=== PATIENT | female | born 1960 | race Caucasian/White ===

== ENCOUNTER 2017-06-25 21:07 | Emergency (ER) | payer MEDICARE ==
[2017-06-25 21:33] LABS: Bilirubin Negative (Negative); Blood, Urine Trace (Negative); Clarity Clear (Clear); Glucose, Urine (Dipstick) Negative (Negative); Leukocyte Negative (Negative); Nitrite Negative (Negative); Protein, Urine (Dipstick) Negative (Neg-Trace); Specific Gravity, Urine 1.025 (1.005-1.030)
[2017-06-25 21:36] LABS: Bacteria/HPF Rare-Few HPF (None Seen); RBC/HPF 0-3 HPF (0-3); Squamous Epithelial 0-3 HPF (0-3); WBC/HPF 0-3 HPF (0-3)
[2017-06-25 21:52] LABS: #Basophils 0.2 thou/uL (0.0-0.2); #Eosinphils 0.3 thou/uL (0.0-0.7); #Lymphocytes 3.1 thou/uL (1.20-3.40); #Monocytes 0.7 thou/uL (0.11-0.59); #Neutrophils 5.6 thou/uL (1.40-6.50); %Basophils 1.8 % (0.0-1.0); %Eosinophils 2.7 % (0.0-10.0); %Lymphocytes 30.9 % (21.0-51.0); %Monocytes 7.4 % (0.0-10.0); %Neutrophils 57.2 % (42.0-75.0); Hemoglobin 12.5 g/dL (12.0-16.0); Mean Corpuscular HGB CONC 32.9 g/dL (32.0-36.0); Mean Corpuscular Hemoglobin 29.8 pg (27.0-31.0); Mean Corpuscular Volume 90.5 fl (81.0-99.0); Mean Platelet Volume 8.4 fL (7.4-10.4); Platelet Count 297 thou/uL (130-400); RBC Distribution Width 13.1 % (11.5-14.5); Red Blood Cell (RBC) Count 4.19 mill/uL (4.20-5.40); White Blood Cell (WBC) Count 9.9 thou/uL (4.8-10.8)
[2017-06-25] MEDS ORDERED: Ketorolac Tromethamine 30 MG/ML VIAL ONE (22:01)
[2017-06-25 22:09] LABS: ALT (SGPT) 28 U/L (8-55); AST (SGOT) 24 U/L (5-34); Albumin 3.6 g/dL (3.5-5.0); Alkaline Phosphatase 110 U/L (40-150); Anion Gap 12 mmol/L (10-20); BUN (Urea Nitrogen) 10 mg/dL (9.8-20.1); Bilirubin, Total 0.2 mg/dL (0.2-1.2); Calc. Creatinine Clearance 0 mL/min (70-130); Calcium 9.2 mg/dL (7.8-10.44); Carbon Dioxide 27 mmol/L (22-29); Chloride 105 mmol/L (98-107); Estimated GFR-MDRD 48; Globulin 3.9 g/dL (2.4-3.5); Glucose 93 mg/dL (70-105); Potassium 4.3 mmol/L (3.5-5.1); Protein, Total 7.5 g/dL (6.0-8.3); Sodium 140 mmol/L (136-145)
--- NOTE | 2017-06-26 07:11 | CT ---
PRELIMINARY REPORT/[facility]/EMERGENCY AFTER HOURS PROCEDURE: EXAM: CT Abdomen and Pelvis Without Intravenous Contrast EXAM DATE/TIME: Exam ordered 06/25/2017 10:17 PM CLINICAL HISTORY: 56 years old, female; Pain; Abdominal pain; Acute; Patient HX: Left sided pain x 1 day TECHNIQUE: Axial computed tomography images of the abdomen and pelvis without intravenous contrast. COMPARISON: No relevant prior studies available. FINDINGS: Lower thorax: No acute findings. ABDOMEN: Liver: Unremarkable. Gallbladder and bile ducts: Prior cholecystectomy. No ductal dilation. Pancreas: Unremarkable. No ductal dilation. Spleen: Unremarkable. No splenomegaly. Adrenals: Bilateral adrenal adenomas. Kidneys and ureters: Unremarkable. No obstructing stones. No hydronephrosis. Stomach and bowel: Postsurgical change of the stomach. No obstruction. No mucosal thickening. Appendix: Normal appendix. PELVIS: Bladder: Unremarkable. No stones. Reproductive: Unremarkable as visualized. ABDOMEN and PELVIS: Intraperitoneal space: Extensive multifocal infiltration of the omentum which should be considered o mental metastatic disease until proven otherwise. Nonspecific fat necrosis less likely but not exclu ded. No free air. No significant fluid collection. Bones/joints: No acute fracture. No dislocation. Soft tissues: Unremarkable. Vasculature: Unremarkable. No abdominal aortic aneurysm. Lymph nodes: Unremarkable. No enlarged lymph nodes. IMPRESSION: Extensive multifocal infiltration of the omentum which should be considered omental metastatic disea se until proven otherwise. Nonspecific fat necrosis less likely but not excluded. Thank you for allowing us to participate in the care of your patient. Dictated and Authenticated by: Kenneth Haque MD 06/25/2017 10:58 PM Central Time ([place]) FINAL REPORT CT ABDOMEN AND PELVIS WITHOUT CONTRAST: Date: 06/25/[address] of the abdomen and pelvis was done without oral or IV contrast for evaluation of left lowe r quadrant pain. Axial slices were acquired, then coronal and sagittal reconstructions were done. FINDINGS: There are spotty areas of increased density in the patient's omentum anteriorly, presumably mostly t he greater omentum. Areas of increased density are spread throughout it. There has been prior stomac h surgery, as well as a prior cholecystectomy. Differential considerations would include omental inf arction or fat necrosis, though metastatic disease would have to be a consideration as well. The fin dings appear to be restricted to the omentum, as I do not see any changes elsewhere. The lung bases are clear. The liver, spleen, pancreas, kidneys, and abdominal aorta show no acute fi ndings within the limitations of a noncontrast study. Bilateral adrenal masses are present consisten t with adenomas. The right is long and thin and measures 3.6 cm in length and the left measures 3.6 cm but is wider. Each has CT numbers in the slightly negative range, making adenomas highly probable . The bowel itself shows no distention. There is no inflammatory change around bowel. There was no sig n of diverticulitis, free air, or free fluid. CT of the pelvis showed no pelvic masses, free fluid, or inflammatory changes. A degenerated disc is present at L5-S1. There may be even a tiny left paracentral disc protrusion. IMPRESSION: Spotty areas of increased density in the omentum, anterior part of the abdomen. Omental infarction o r fat necrosis is a prime consideration. Metastatic disease to omentum must be in the differential a s well. Findings in agreement with preliminary reading by Luc. POS: HOME
== END 2017-06-25 23:37 | disposition home or self-care (01) ==
LOC: BURERS 21:07
DX: R10.32 Left lower quadrant pain (principal); G89.29 Other chronic pain; M54.9 Dorsalgia, unspecified; K21.9 Gastro-esophageal reflux disease without esophagitis; F41.9 Anxiety disorder, unspecified; F32.9 Major depressive disorder, single episode, unspecified; F17.210 Nicotine dependence, cigarettes, uncomplicated; Z79.899 Other long term (current) drug therapy
CPT/HCPCS: 74176; 80053; 81003; 81015; 85025; 96374; J1885

== ENCOUNTER 2017-08-05 08:03 | Emergency (ER) | payer MEDICARE ==
[2017-08-05] MEDS ORDERED: Ketorolac Tromethamine 30 MG/ML VIAL ONE (08:28)
[2017-08-05] MEDS ORDERED: Pantoprazole 40 MG VIAL ONE (08:28)
[2017-08-05] MEDS ORDERED: Ondansetron HCl/PF 4 MG/2 ML Vial ONE (08:28)
[2017-08-05 08:36] LABS: #Basophils 0.1 thou/uL (0.0-0.2); #Eosinphils 0.2 thou/uL (0.0-0.7); #Lymphocytes 2.3 thou/uL (1.20-3.40); #Monocytes 0.7 thou/uL (0.11-0.59); #Neutrophils 6.9 thou/uL (1.40-6.50); %Basophils 1.3 % (0.0-1.0); %Eosinophils 2.1 % (0.0-10.0); %Lymphocytes 22.5 % (21.0-51.0); %Monocytes 6.9 % (0.0-10.0); %Neutrophils 67.1 % (42.0-75.0); Hemoglobin 13.4 g/dL (12.0-16.0); Mean Corpuscular HGB CONC 33.3 g/dL (32.0-36.0); Mean Corpuscular Hemoglobin 29.9 pg (27.0-31.0); Mean Corpuscular Volume 89.9 fl (81.0-99.0); Platelet Count 283 thou/uL (130-400); RBC Distribution Width 13.4 % (11.5-14.5); Red Blood Cell (RBC) Count 4.47 mill/uL (4.20-5.40); White Blood Cell (WBC) Count 10.3 thou/uL (4.8-10.8)
[2017-08-05 08:36] LABS: Bilirubin Negative (Negative); Blood, Urine Negative (Negative); Clarity Slightly Cloudy (Clear); Glucose, Urine (Dipstick) Negative (Negative); Leukocyte Negative (Negative); Nitrite Negative (Negative); Protein, Urine (Dipstick) Negative (Neg-Trace); Urobilinogen 0.2 mg/dL (0.2-1.0); pH, Urine 5.5 (5.0-9.0)
[2017-08-05 08:50] LABS: ALT (SGPT) 25 U/L (8-55); AST (SGOT) 20 U/L (5-34); Albumin 3.6 g/dL (3.5-5.0); Alkaline Phosphatase 113 U/L (40-150); Anion Gap 14 mmol/L (10-20); BUN (Urea Nitrogen) 11 mg/dL (9.8-20.1); Bilirubin, Total 0.6 mg/dL (0.2-1.2); Calc. Creatinine Clearance 0 mL/min (70-130); Calcium 9.4 mg/dL (7.8-10.44); Carbon Dioxide 24 mmol/L (22-29); Chloride 104 mmol/L (98-107); Estimated GFR-MDRD 76; Globulin 4.3 g/dL (2.4-3.5); Glucose 116 mg/dL (70-105); Lipase 34 U/L (8-78); Protein, Total 7.9 g/dL (6.0-8.3); Sodium 138 mmol/L (136-145)
[2017-08-05] MEDS ORDERED: Iopamidol 370 76% 100 ML VIAL ONE (09:00)
--- NOTE | 2017-08-05 11:22 | CT ---
CT ABDOMEN AND PELVIS WITH IV CONTRAST: 08/05/2017 HISTORY: Left-sided abdominal pain for one day. Left lower quadrant abdominal pain. COMPARISON: 06/25/2017 FINDINGS: Again noted are post surgical changes of the stomach, which may be related to a gastric sleeve proce dure. Post cholecystectomy changes are again noted. A calcified granuloma is seen at the left lung base with calcified granulomata again present in the liver. There is stranding within the anterior abdominal wall fat. This extends over a greater distribution than expected for fat necrosis, and there are no associated calcifications or other findings to sug gest this represents an area of fat necrosis. This is also in a larger distribution than expected f or areas of omental infarction; given the more extensive distribution throughout the anterior abdome n, peritoneal carcinomatosis should be considered. Again noted are bilateral adrenal masses, which were shown to represent adrenal adenomas by attenuat ion coefficient on prior noncontrasted CT exam. These are stable in size and appearance. There is mild diminished attenuation of the liver, relative to the spleen. Although this is nonspec ific on a post contrasted study, this may be related to mild fatty infiltration. The pancreas, bilateral kidneys, abdominal aorta, and urinary bladder demonstrate a normal CT appear ance. The uterus and adnexal structures demonstrate a grossly normal appearance for the patient's a ge. The appendix is visualized and normal in caliber. No free fluid, fluid collection, or lymphadenopathy is seen in the abdomen or pelvis. There have be en no interval changes compared to the prior noncontrasted CT scan examination. IMPRESSION: 1. Persistent stranding and areas of slight nodularity involving the anterior and right anterolater al abdomen, which is not significantly changed compared to the prior exam. Omental carcinomatosis i s again the diagnosis of exclusion; although other etiologies, as described above, cannot be entirel y excluded. 2. Bilateral adrenal adenomas. 3. Post surgical changes of the stomach with evidence of prior cholecystectomy. 4. No CT evidence of appendicitis. 5. No acute findings are seen in the abdomen or pelvis. POS: [facility]
== END 2017-08-05 10:17 | disposition home or self-care (01) ==
LOC: BURERS 08:03
DX: R10.11 Right upper quadrant pain (principal); K21.9 Gastro-esophageal reflux disease without esophagitis; F41.9 Anxiety disorder, unspecified; F32.9 Major depressive disorder, single episode, unspecified; F17.210 Nicotine dependence, cigarettes, uncomplicated; Z79.899 Other long term (current) drug therapy
CPT/HCPCS: 74177; 80053; 81003; 83690; 85025; 96374; 96375; C9113; J1885; J2405

== ENCOUNTER 2017-08-14 08:36 | Emergency (ER) | payer MEDICARE ==
[2017-08-14 08:58] LABS: Bilirubin Negative (Negative); Blood, Urine Negative (Negative); Clarity Clear (Clear); Glucose, Urine (Dipstick) Negative (Negative); Leukocyte Negative (Negative); Nitrite Negative (Negative); Protein, Urine (Dipstick) Negative (Neg-Trace); Specific Gravity, Urine 1.015 (1.005-1.030); Urobilinogen 0.2 mg/dL (0.2-1.0); pH, Urine 5.5 (5.0-9.0)
[2017-08-14] MEDS ORDERED: Ketorolac Tromethamine 30 MG/ML VIAL ONE (09:12)
[2017-08-14 09:35] LABS: #Basophils 0.1 thou/uL (0.0-0.2); #Eosinphils 0.2 thou/uL (0.0-0.7); #Lymphocytes 2.1 thou/uL (1.20-3.40); #Monocytes 0.6 thou/uL (0.11-0.59); #Neutrophils 3.5 thou/uL (1.40-6.50); %Basophils 1.4 % (0.0-1.0); %Eosinophils 3.5 % (0.0-10.0); %Lymphocytes 32.1 % (21.0-51.0); %Monocytes 8.6 % (0.0-10.0); %Neutrophils 54.4 % (42.0-75.0); Hemoglobin 12.8 g/dL (12.0-16.0); Mean Corpuscular HGB CONC 32.1 g/dL (32.0-36.0); Mean Corpuscular Hemoglobin 28.9 pg (27.0-31.0); Mean Corpuscular Volume 89.9 fl (81.0-99.0); Mean Platelet Volume 7.5 fL (7.4-10.4); Platelet Count 240 thou/uL (130-400); RBC Distribution Width 13.6 % (11.5-14.5); Red Blood Cell (RBC) Count 4.44 mill/uL (4.20-5.40); White Blood Cell (WBC) Count 6.5 thou/uL (4.8-10.8)
[2017-08-14 09:45] LABS: ALT (SGPT) 32 U/L (8-55); AST (SGOT) 20 U/L (5-34); Albumin 3.4 g/dL (3.5-5.0); Alkaline Phosphatase 122 U/L (40-150); Anion Gap 13 mmol/L (10-20); BUN (Urea Nitrogen) 12 mg/dL (9.8-20.1); Bilirubin, Total 0.4 mg/dL (0.2-1.2); Calc. Creatinine Clearance 0 mL/min (70-130); Calcium 9.2 mg/dL (7.8-10.44); Carbon Dioxide 24 mmol/L (22-29); Chloride 107 mmol/L (98-107); Estimated GFR-MDRD 77; Glucose 107 mg/dL (70-105); Lipase 35 U/L (8-78); Potassium 4.1 mmol/L (3.5-5.1); Protein, Total 7.4 g/dL (6.0-8.3); Sodium 140 mmol/L (136-145)
[2017-08-14] MEDS ORDERED: Fentanyl 100 MCG/2 ML VIAL ONE (09:58)
== END 2017-08-14 10:29 | disposition home or self-care (01) ==
LOC: BURERS 08:36
DX: R10.11 Right upper quadrant pain (principal); G89.29 Other chronic pain; F41.9 Anxiety disorder, unspecified; F32.9 Major depressive disorder, single episode, unspecified; F17.210 Nicotine dependence, cigarettes, uncomplicated; Z79.899 Other long term (current) drug therapy
CPT/HCPCS: 80053; 81003; 83605; 83690; 85025; 94760; 96374; 96375; J1885; J3010

== ENCOUNTER 2017-08-23 21:45 | Emergency (ER) | payer MEDICARE ==
[2017-08-23] MEDS ORDERED: Promethazine HCl 25 MG/ML VIAL ONE (22:16)
[2017-08-23] MEDS ORDERED: methylPREDNISolone Sod Succ/PF 125 MG/2 ML VIAL ONE (22:16)
[2017-08-23 22:22] LABS: Bilirubin Negative (Negative); Blood, Urine Negative (Negative); Glucose, Urine (Dipstick) Negative (Negative); Leukocyte Negative (Negative); Nitrite Negative (Negative); Protein, Urine (Dipstick) Negative (Neg-Trace); Specific Gravity, Urine 1.025 (1.005-1.030); Urobilinogen 0.2 mg/dL (0.2-1.0); pH, Urine 5.5 (5.0-9.0)
[2017-08-23 22:23] LABS: Clarity Hazy (Clear)
[2017-08-23 23:06] LABS: #Basophils 0.2 thou/uL (0.0-0.2); #Eosinphils 0.3 thou/uL (0.0-0.7); #Lymphocytes 2.8 thou/uL (1.20-3.40); #Monocytes 0.8 thou/uL (0.11-0.59); #Neutrophils 8.1 thou/uL (1.40-6.50); %Basophils 1.9 % (0.0-1.0); %Eosinophils 2.4 % (0.0-10.0); %Lymphocytes 23.2 % (21.0-51.0); %Monocytes 6.7 % (0.0-10.0); %Neutrophils 65.9 % (42.0-75.0); Hemoglobin 12.7 g/dL (12.0-16.0); Mean Corpuscular HGB CONC 31.6 g/dL (32.0-36.0); Mean Corpuscular Hemoglobin 28.3 pg (27.0-31.0); Mean Corpuscular Volume 89.5 fl (81.0-99.0); Mean Platelet Volume 7.5 fL (7.4-10.4); Platelet Count 318 thou/uL (130-400); RBC Distribution Width 13.5 % (11.5-14.5); Red Blood Cell (RBC) Count 4.48 mill/uL (4.20-5.40); White Blood Cell (WBC) Count 12.2 thou/uL (4.8-10.8)
[2017-08-23 23:19] LABS: ALT (SGPT) 32 U/L (8-55); AST (SGOT) 24 U/L (5-34); Albumin 3.6 g/dL (3.5-5.0); Alkaline Phosphatase 113 U/L (40-150); Anion Gap 16 mmol/L (10-20); BUN (Urea Nitrogen) 13 mg/dL (9.8-20.1); Bilirubin, Total 0.4 mg/dL (0.2-1.2); Calc. Creatinine Clearance 0 mL/min (70-130); Calcium 9.3 mg/dL (7.8-10.44); Carbon Dioxide 23 mmol/L (22-29); Chloride 103 mmol/L (98-107); Estimated GFR-MDRD 76; Globulin 4.2 g/dL (2.4-3.5); Glucose 95 mg/dL (70-105); Lipase 41 U/L (8-78); Protein, Total 7.8 g/dL (6.0-8.3); Sodium 138 mmol/L (136-145)
== END 2017-08-23 23:43 | disposition home or self-care (01) ==
LOC: BURERS 21:45
DX: R19.01 Right upper quadrant abdominal swelling, mass and lump (principal); F41.9 Anxiety disorder, unspecified; F32.9 Major depressive disorder, single episode, unspecified; F17.210 Nicotine dependence, cigarettes, uncomplicated; Z79.899 Other long term (current) drug therapy; K21.9 Gastro-esophageal reflux disease without esophagitis
CPT/HCPCS: 80053; 81003; 83690; 85025; 96374; 96375; J1170; J2550; J2930

== ENCOUNTER 2017-09-15 20:16 | Emergency (ER) | payer MEDICARE ==
[2017-09-15] MEDS ORDERED: Enoxaparin Sodium 30 MG/0.3 ML SYRINGE ONE (20:38)
[2017-09-15] MEDS ORDERED: Enoxaparin Sodium 100 MG/ML SYRINGE ONE (20:38)
[2017-09-15] MEDS ORDERED: Ondansetron ODT 4 MG TAB ONE (20:39)
== END 2017-09-15 21:00 | disposition short-term general hospital (02) ==
LOC: BURERS 20:16
DX: I80.9 Phlebitis and thrombophlebitis of unspecified site (principal); F41.9 Anxiety disorder, unspecified; F32.9 Major depressive disorder, single episode, unspecified; F17.210 Nicotine dependence, cigarettes, uncomplicated
CPT/HCPCS: 99284; J1650; Q0162

== ENCOUNTER 2017-10-10 22:21 | Emergency (ER) | payer MEDICARE ==
[2017-10-10] MEDS ORDERED: Famotidine In NaCl 20 mg/50 ml Premix Bag ONE (23:14)
[2017-10-10] MEDS ORDERED: Lidocaine Viscous Sol 2% 15 ml UD Cup ONE (23:17)
[2017-10-10] MEDS ORDERED: Mag-Al Plus 1200 MG/1200 MG/120 MG/30 ML UDCUP ONE (23:17)
--- NOTE | 2017-10-10 23:23 | RAD ---
ACUTE ABDOMEN SERIES 10/10/17 There is some dilated loops of small bowel centrally, some loops measuring up to 2.6 cm in width. The re is also abundance of fecal material in the colon and a few air fluid levels in the right colon. Th e pattern is nonspecific and could represent an early or partial obstruction versus merely somewhat o f an ileus, such as might be found in enteritis. Depending upon the clinical presentation, a CT might be needed. There is no sign of free air. No calcifications of concern were seen. Clips are noted in the right upper quadrant from a prior cholecystectomy and I believe there may be other clips or calci fied vessels in the left upper quadrant. A chest film in the series shows a indwelling catheter in place that enters via the right subclavian route. The tip of the catheter tubing is near the lower end of the superior vena cava. The heart size is normal and the lungs are clear. IMPRESSION: Some mildly dilated loops of small bowel with a few air fluid levels. Partial or early obstruction ve rsus ileus. Further followup needed. POS: HOME
[2017-10-10 23:40] LABS: #Basophils 0.1 thou/uL (0.0-0.2); #Eosinphils 0.3 thou/uL (0.0-0.7); #Lymphocytes 1.5 thou/uL (1.20-3.40); #Monocytes 0.1 thou/uL (0.11-0.59); %Basophils 1.3 % (0.0-1.0); %Eosinophils 7.2 % (0.0-10.0); %Lymphocytes 37.6 % (21.0-51.0); %Monocytes 3.4 % (0.0-10.0); %Neutrophils 50.5 % (42.0-75.0); Hemoglobin 10.6 g/dL (12.0-16.0); Mean Corpuscular HGB CONC 32.6 g/dL (32.0-36.0); Mean Corpuscular Hemoglobin 27.4 pg (27.0-31.0); Mean Corpuscular Volume 84.1 fl (81.0-99.0); Mean Platelet Volume 7.7 fL (7.4-10.4); Platelet Count 235 thou/uL (130-400); RBC Distribution Width 13.3 % (11.5-14.5); Red Blood Cell (RBC) Count 3.86 mill/uL (4.20-5.40)
[2017-10-10 23:50] LABS: ALT (SGPT) 64 U/L (8-55); AST (SGOT) 53 U/L (5-34); Albumin 3.5 g/dL (3.5-5.0); Alkaline Phosphatase 103 U/L (40-150); Anion Gap 14 mmol/L (10-20); BUN (Urea Nitrogen) 13 mg/dL (9.8-20.1); Bilirubin, Total 0.4 mg/dL (0.2-1.2); Calc. Creatinine Clearance 0 mL/min (70-130); Calcium 9.3 mg/dL (7.8-10.44); Carbon Dioxide 26 mmol/L (22-29); Chloride 100 mmol/L (98-107); Estimated GFR-MDRD 87; Globulin 4.7 g/dL (2.4-3.5); Glucose 101 mg/dL (70-105); Lipase 28 U/L (8-78); Potassium 4.6 mmol/L (3.5-5.1); Protein, Total 8.2 g/dL (6.0-8.3); Sodium 135 mmol/L (136-145)
--- NOTE | 2017-10-11 07:21 | CT ---
PRELIMINARY REPORT/[facility]/EMERGENCY AFTER HOURS PROCEDURE: EXAM: CT Abdomen and Pelvis With Intravenous Contrast CLINICAL HISTORY: 56 years old, female; Signs and symptoms; Abdominal tenderness; Prior surgery; Surgery date: <1 month ; Surgery type: Hysterectomy; Patient HX: Pt presents to the er for abdominal pain; Recent dx of ovar devyn ca TECHNIQUE: Axial computed tomography images of the abdomen and pelvis with intravenous contrast. All CT scans at this facility use one or more dose reduction techniques, viz.: automated exposure control; ma/kV adj ustment per patient size (including targeted exams where dose is matched to indication; i.e. head); o r iterative reconstruction technique. Coronal reformatted images were created and reviewed. CONTRAST: 100 mL of ISOVUE 370 administered intravenously. COMPARISON: No relevant prior studies available. FINDINGS: Lower thorax: There is a small left pleural effusion. ABDOMEN: Liver: There is evidence of fatty infiltration of the liver. Gallbladder and bile ducts: There is evidence of cholecystectomy. No ductal dilation. Pancreas: Unremarkable. Spleen: Calcifications in the spleen are consistent with granulomas. Adrenals: There is a 3.6 x 2.4 centimeter low-density nodule in the left abdomen. There is a 2.7 x 1. 8 cm low-density nodule in the right adrenal gland. Kidneys and ureters: Unremarkable. Stomach and bowel: There is evidence of gastric sleeve surgery. There is a moderate amount of stool i n the colon. Appendix: The appendix is unremarkable. PELVIS: Bladder: Unremarkable. No mass. Reproductive: The uterus is not identified. ABDOMEN and PELVIS: Intraperitoneal space: There is a small amount of free fluid. Bones/joints: No acute fracture. No dislocation. Soft tissues: Unremarkable. Vasculature: Unremarkable. No abdominal aortic aneurysm. Lymph nodes: Unremarkable. No enlarged lymph nodes. IMPRESSION: 1. Free fluid. 2. Moderate distention of the colon. 3. Indeterminate adrenal nodules. 4. Additional findings as above. Thank you for allowing us to participate in the care of your patient. Dictated and Authenticated by: Lester Ortiz MD 10/11/2017 12:20 AM Central Time ([place] & [place]) FINAL REPORT CT ABDOMEN AND PELVIS WITH CONTRAST: Date: 10/10/[address] of the abdomen and pelvis was performed for evaluation of abdominal pain. Axial slices were acquired after giving IV by request. Coronal reconstructions were then done. FINDINGS: Lung bases are clear. There may be some fatty infiltration of the liver. A small amount of free fluid is seen in the abdomen around the liver. The pancreas is unremarkable. Prior cholecystectomy noted. Kidneys and abdominal aorta are unremarkable. Bilateral adrenal nodules are present. Left adrenal nodule is 3.2 cm long and has a mean density of a bout 22 units. The right adrenal nodule is about 2.7 cm long and has a mean CT density of 34 units. T hese findings are indeterminate for diagnosis, though on some prior noncontrast exams they had a low density and were felt to be adrenal adenomas. Neither have increased in size since a 06/25/17 scan. Fecal material is scattered throughout the colon. A few of the loops of small bowel have fluid in the m, but none are truly distended to a point of concern. There is no current evidence for bowel obstruc tion. No free air is noted. As noted above, there are some pockets of fluid around the liver, and als o some pockets in the upper to mid pelvis. CT of the pelvis is remarkable for the fluid mentioned. No pelvic masses or inflammatory changes arou nd bowel seen. There is no sign of appendicitis. IMPRESSION: 1. Pockets of free fluid throughout the abdomen and pelvis, possibly related to the recent surgery. No focal collection suggestive of an abscess appreciated at the moment. 2. Bilateral adrenal masses, stable. Prior noncontrast studies have shown CT numbers consistent with adenomas. 3. While there is some slight distention of the colon, it is mainly by fecal material, and currently there is no strong evidence for obstruction. Report in agreement with preliminary reading by Luc. POS: HOME
== END 2017-10-11 01:07 | disposition home or self-care (01) ==
LOC: BURERS 22:21
DX: K59.00 Constipation, unspecified (principal); K21.9 Gastro-esophageal reflux disease without esophagitis; F41.9 Anxiety disorder, unspecified; F32.9 Major depressive disorder, single episode, unspecified; F17.210 Nicotine dependence, cigarettes, uncomplicated; G89.29 Other chronic pain; Z85.43 Personal history of malignant neoplasm of ovary; Z79.899 Other long term (current) drug therapy
CPT/HCPCS: 74022; 74177; 80053; 83605; 83690; 85025

== ENCOUNTER 2017-10-29 20:54 | Emergency (ER) | payer MEDICARE ==
[2017-10-29] MEDS ORDERED: Ondansetron HCl/PF 4 MG/2 ML Vial SLOW IVP SCH (22:00)
[2017-10-29] MEDS ORDERED: Sodium Chloride 0.9% 1,000 ML IV SCH (22:00)
[2017-10-29] MEDS ORDERED: Famotidine/PF 20 mg/2ml Vial SLOW IVP SCH (22:00)
[2017-10-29 22:19] LABS: ALT (SGPT) 45 U/L (8-55); AST (SGOT) 32 U/L (5-34); Albumin 3.6 g/dL (3.5-5.0); Alkaline Phosphatase 104 U/L (40-150); Anion Gap 16 mmol/L (10-20); BUN (Urea Nitrogen) 17 mg/dL (9.8-20.1); Calc. Creatinine Clearance 0 mL/min (70-130); Calcium 9.5 mg/dL (7.8-10.44); Carbon Dioxide 25 mmol/L (22-29); Chloride 102 mmol/L (98-107); Estimated GFR-MDRD 86; Globulin 4.4 g/dL (2.4-3.5); Glucose 125 mg/dL (70-105); Lipase 42 U/L (8-78); Potassium 4.6 mmol/L (3.5-5.1); Sodium 138 mmol/L (136-145)
[2017-10-29 22:20] LABS: #Eosinphils 0.1 thou/uL (0.0-0.7); #Lymphocytes 0.9 thou/uL (1.20-3.40); #Neutrophils 3.7 thou/uL (1.40-6.50); %Basophils 0.9 % (0.0-1.0); %Eosinophils 1.4 % (0.0-10.0); %Lymphocytes 19.6 % (21.0-51.0); %Monocytes 0.6 % (0.0-10.0); %Neutrophils 77.5 % (42.0-75.0); Hemoglobin 10.7 g/dL (12.0-16.0); Mean Corpuscular HGB CONC 33.3 g/dL (32.0-36.0); Mean Corpuscular Hemoglobin 27.4 pg (27.0-31.0); Mean Corpuscular Volume 82.4 fl (81.0-99.0); Mean Platelet Volume 7.5 fL (7.4-10.4); Platelet Count 196 thou/uL (130-400); RBC Distribution Width 14.8 % (11.5-14.5); Red Blood Cell (RBC) Count 3.89 mill/uL (4.20-5.40); White Blood Cell (WBC) Count 4.7 thou/uL (4.8-10.8)
[2017-10-29 22:33] LABS: Bilirubin, Total 0.5 mg/dL (0.2-1.2)
[2017-10-29 22:35] LABS: Bilirubin Negative (Negative); Blood, Urine Negative (Negative); Clarity Clear (Clear); Glucose, Urine (Dipstick) Negative (Negative); Leukocyte Negative (Negative); Nitrite Negative (Negative); Protein, Urine (Dipstick) Negative (Neg-Trace); Urobilinogen 0.2 mg/dL (0.2-1.0)
[2017-10-29] MEDS ORDERED: Ondansetron HCl/PF 4 MG/2 ML Vial ONE (22:39)
[2017-10-29] MEDS ORDERED: Famotidine/PF 20 mg/2ml Vial ONE (22:39)
[2017-10-29] MEDS ORDERED: Promethazine HCl 25 MG/ML VIAL ONE (22:39)
== END 2017-10-29 23:56 | disposition home or self-care (01) ==
LOC: BURERS 20:54
DX: E86.0 Dehydration (principal); D64.9 Anemia, unspecified; R11.2 Nausea with vomiting, unspecified; K21.9 Gastro-esophageal reflux disease without esophagitis; F41.9 Anxiety disorder, unspecified; F32.9 Major depressive disorder, single episode, unspecified; F17.210 Nicotine dependence, cigarettes, uncomplicated; Z79.52 Long term (current) use of systemic steroids; Z79.899 Other long term (current) drug therapy; Z85.43 Personal history of malignant neoplasm of ovary
CPT/HCPCS: 80053; 81003; 83690; 85025; 94760; 96361; 96374; 96375; A4216; J2405; J2550; S0028

== ENCOUNTER 2017-12-08 21:22 | Emergency (ER) | payer MEDICARE ==
[2017-12-08 22:11] LABS: White Blood Cell (WBC) Count 4.7 thou/uL (4.8-10.8)
[2017-12-08 22:12] LABS: Hemoglobin 10.1 g/dL (12.0-16.0); Manual Diff?? YES; Mean Corpuscular HGB CONC 36.3 g/dL (32.0-36.0); Mean Corpuscular Hemoglobin 30.6 pg (27.0-31.0); Mean Corpuscular Volume 84.4 fL (81.0-99.0); Mean Platelet Volume 7.9 fL (7.4-10.4); Platelet Count 142 thou/uL (130-400); RBC Distribution Width 22.2 % (11.5-14.5); Red Blood Cell (RBC) Count 3.29 mill/uL (4.20-5.40)
[2017-12-08 22:18] LABS: ALT (SGPT) 32 U/L (8-55); AST (SGOT) 21 U/L (5-34); Albumin 3.5 g/dL (3.5-5.0); Alkaline Phosphatase 99 U/L (40-150); Anion Gap 16 mmol/L (10-20); Bilirubin, Total 0.2 mg/dL (0.2-1.2); Calc. Creatinine Clearance 0 mL/min (70-130); Calcium 9.2 mg/dL (7.8-10.44); Carbon Dioxide 22 mmol/L (22-29); Chloride 103 mmol/L (98-107); Estimated GFR-MDRD 79; Globulin 3.8 g/dL (2.4-3.5); Glucose 192 mg/dL (70-105); Potassium 4.5 mmol/L (3.5-5.1); Protein, Total 7.3 g/dL (6.0-8.3); Sodium 136 mmol/L (136-145)
[2017-12-08 22:19] LABS: Band 3 % (5-11); Lymphocytes 13 % (21-51); Monocytes 1 % (0-10); Neutrophil 83 % (42-75)
[2017-12-08 22:20] LABS: MDiff Complete? YES
[2017-12-08 22:21] LABS: Anisocytosis MODERATE=16-30 cells (100X) (0-5/hpf); Hypochromia SLIGHT = 6-15 cells (100X) (0-5/hpf)
[2017-12-08 22:22] LABS: PLT Morphology Comment Appears Adequate
[2017-12-08 22:24] LABS: BUN (Urea Nitrogen) 19 mg/dL (9.8-20.1)
[2017-12-08] MEDS ORDERED: Promethazine HCl 25 MG/ML VIAL ONE (22:43)
== END 2017-12-08 23:25 | disposition home or self-care (01) ==
LOC: BURERS 21:22
DX: M79.2 Neuralgia and neuritis, unspecified (principal); F17.210 Nicotine dependence, cigarettes, uncomplicated; Z79.899 Other long term (current) drug therapy
CPT/HCPCS: 80053; 85025; 96365; 96375; J1170; J2550

== ENCOUNTER 2017-12-17 12:53 | Emergency (ER) | payer MEDICARE ==
[2017-12-17] MEDS ORDERED: Lidocaine 4% Cream 5 GM TUBE w/ Tegaderm ONE (13:13)
[2017-12-17] MEDS ORDERED: Ondansetron HCl/PF 4 MG/2 ML Vial ONE (13:23)
[2017-12-17 13:49] LABS: Hemoglobin 8.5 g/dL (12.0-16.0); Mean Corpuscular HGB CONC 34.5 g/dL (32.0-36.0); Mean Corpuscular Hemoglobin 29.5 pg (27.0-31.0); Mean Corpuscular Volume 85.4 fl (81.0-99.0); Mean Platelet Volume 7.9 fL (7.4-10.4); Platelet Count 111 thou/uL (130-400); RBC Distribution Width 22.5 % (11.5-14.5); Red Blood Cell (RBC) Count 2.88 mill/uL (4.20-5.40); White Blood Cell (WBC) Count 2.2 thou/uL (4.8-10.8)
[2017-12-17 14:04] LABS: ALT (SGPT) 38 U/L (8-55); AST (SGOT) 22 U/L (5-34); Albumin 3.4 g/dL (3.5-5.0); Alkaline Phosphatase 109 U/L (40-150); Anion Gap 13 mmol/L (10-20); BUN (Urea Nitrogen) 15 mg/dL (9.8-20.1); Bilirubin, Total 0.2 mg/dL (0.2-1.2); CK (CPK) 37 U/L (29-168); Calc. Creatinine Clearance 0 mL/min (70-130); Carbon Dioxide 24 mmol/L (22-29); Chloride 108 mmol/L (98-107); Estimated GFR-MDRD 79; Globulin 3.7 g/dL (2.4-3.5); Glucose 118 mg/dL (70-105); Potassium 3.8 mmol/L (3.5-5.1); Protein, Total 7.1 g/dL (6.0-8.3); Sodium 141 mmol/L (136-145)
[2017-12-17 14:07] LABS: Band 1 % (5-11); Eosinophils 1 % (0-10); Lymphocytes 70 % (21-51); MDiff Complete? YES; Macrocytosis MODERATE=16-30 cells (100X) (0-5/hpf); Microcytosis SLIGHT = 6-15 cells (100X) (0-5/hpf); Monocytes 4 % (0-10); Neutrophil 20 % (42-75); Polychromasia SLIGHT = 2-3 cells (100X) (0-2/hpf); Reactive Lymphocytes 4 % (0-10)
[2017-12-17 14:25] LABS: Bilirubin Negative (Negative); Blood, Urine Negative (Negative); Clarity Clear (Clear); Glucose, Urine (Dipstick) Negative (Negative); Leukocyte Negative (Negative); Nitrite Negative (Negative); Protein, Urine (Dipstick) Negative (Neg-Trace); Specific Gravity, Urine 1.025 (1.005-1.030); Urobilinogen 0.2 mg/dL (0.2-1.0)
[2017-12-17] MEDS ORDERED: Acetaminophen 325 MG TAB ONE (14:39)
== END 2017-12-17 15:35 | disposition home or self-care (01) ==
LOC: BURERS 12:53
DX: E86.0 Dehydration (principal); D70.9 Neutropenia, unspecified; F41.9 Anxiety disorder, unspecified; F32.9 Major depressive disorder, single episode, unspecified; F17.210 Nicotine dependence, cigarettes, uncomplicated
CPT/HCPCS: 80053; 81003; 82550; 85025; 87086; 96361; 96374; J2405

== ENCOUNTER 2017-12-23 19:46 | Emergency (ER) | payer MEDICARE ==
[2017-12-23] MEDS ORDERED: Promethazine HCl 25 MG/ML VIAL ONE (22:40)
[2017-12-23 22:52] LABS: #Basophils 0.1 thou/uL (0.0-0.2); #Lymphocytes 1.8 thou/uL (1.20-3.40); #Monocytes 0.6 thou/uL (0.11-0.59); #Neutrophils 3.3 thou/uL (1.40-6.50); %Basophils 1.4 % (0.0-1.0); %Eosinophils 0.6 % (0.0-10.0); %Lymphocytes 31.2 % (21.0-51.0); %Monocytes 9.4 % (0.0-10.0); %Neutrophils 57.4 % (42.0-75.0); Hemoglobin 9.5 g/dL (12.0-16.0); Mean Corpuscular HGB CONC 33.4 g/dL (32.0-36.0); Mean Corpuscular Hemoglobin 29.9 pg (27.0-31.0); Mean Corpuscular Volume 89.5 fl (81.0-99.0); Mean Platelet Volume 6.4 fL (7.4-10.4); PTT 26.6 SEC (22.9-36.1); Platelet Count 139 thou/uL (130-400); Prothrombin Time 12.8 SEC (12.0-14.7); RBC Distribution Width 23.6 % (11.5-14.5); Red Blood Cell (RBC) Count 3.16 mill/uL (4.20-5.40); White Blood Cell (WBC) Count 5.8 thou/uL (4.8-10.8)
--- NOTE | 2017-12-23 22:57 | RAD ---
PORTABLE AP CHEST X-RAY 12/23/17 HISTORY: Fever. COMPARISON: 10/10/17. FINDINGS: A right subclavian Mediport catheter remains in place. Cardiac silhouette is magnified by projection. Calcified granuloma is seen in region of the lingula. The lungs are otherwise clear. There has been no interval change from prior exam. IMPRESSION: No acute cardiopulmonary process. POS: [facility]
[2017-12-23 23:02] LABS: ALT (SGPT) 21 U/L (8-55); AST (SGOT) 14 U/L (5-34); Albumin 3.4 g/dL (3.5-5.0); Alkaline Phosphatase 97 U/L (40-150); Anion Gap 15 mmol/L (10-20); BUN (Urea Nitrogen) 8 mg/dL (9.8-20.1); Bilirubin, Total 0.2 mg/dL (0.2-1.2); Calc. Creatinine Clearance 0 mL/min (70-130); Calcium 9.3 mg/dL (7.8-10.44); Carbon Dioxide 24 mmol/L (22-29); Chloride 106 mmol/L (98-107); Estimated GFR-MDRD 83; Globulin 3.8 g/dL (2.4-3.5); Glucose 109 mg/dL (70-105); Potassium 3.8 mmol/L (3.5-5.1); Protein, Total 7.2 g/dL (6.0-8.3); Sodium 141 mmol/L (136-145)
[2017-12-23 23:04] LABS: PLT Morphology Comment Appears Adequate
[2017-12-23 23:05] LABS: Anisocytosis SLIGHT = 6-15 cells (100X) (0-5/hpf); Toxic Granulation SLIGHT
[2017-12-23 23:36] LABS: Bilirubin Negative (Negative); Blood, Urine Negative (Negative); Clarity Slightly Cloudy (Clear); Glucose, Urine (Dipstick) Negative (Negative); Leukocyte Trace (Negative); Nitrite Negative (Negative); Protein, Urine (Dipstick) 30 mg/dL (Neg-Trace); Urobilinogen 0.2 mg/dL (0.2-1.0); pH, Urine 5.5 (5.0-9.0)
[2017-12-23 23:37] LABS: Specific Gravity, Urine 1.024 (1.002-1.036)
[2017-12-23 23:45] LABS: Bacteria/HPF Rare-Few HPF (None Seen); RBC/HPF 0-3 HPF (0-3); Squamous Epithelial 0-3 HPF (0-3)
[2017-12-24] MEDS ORDERED: CEFAZOLIN 1 GM VIAL ONE (00:07)
[2017-12-24] MEDS ORDERED: Water For Injection,Sterile 20 ML ONE (00:08)
== END 2017-12-24 00:20 | disposition home or self-care (01) ==
LOC: BURERS 19:46
DX: K52.9 Noninfective gastroenteritis and colitis, unspecified (principal); D89.9 Disorder involving the immune mechanism, unspecified; K21.9 Gastro-esophageal reflux disease without esophagitis; F41.9 Anxiety disorder, unspecified; F32.9 Major depressive disorder, single episode, unspecified; F17.210 Nicotine dependence, cigarettes, uncomplicated; Z79.899 Other long term (current) drug therapy; Z85.43 Personal history of malignant neoplasm of ovary
CPT/HCPCS: 36415; 71045; 80053; 81003; 81015; 83605; 85025; 85610; 85730; 87040; 96372; J0690; J2550

== ENCOUNTER 2018-01-07 17:57 | Observation (INO) | payer MEDICARE ==
[2018-01-07] MEDS ORDERED: Promethazine HCl 25 MG/ML VIAL ONE (18:28)
[2018-01-07] MEDS ORDERED: Ketorolac Tromethamine 30 MG/ML VIAL ONE (18:28)
[2018-01-07 19:04] LABS: #Lymphocytes 0.6 thou/uL (1.20-3.40); #Neutrophils 3.8 thou/uL (1.40-6.50); %Basophils 0.1 % (0.0-1.0); %Eosinophils 0.4 % (0.0-10.0); %Lymphocytes 13.7 % (21.0-51.0); %Monocytes 0.6 % (0.0-10.0); %Neutrophils 85.1 % (42.0-75.0); Hemoglobin 10.2 g/dL (12.0-16.0); Hypochromia SLIGHT = 6-15 cells (100X) (0-5/hpf); MDiff Complete? YES; Macrocytosis SLIGHT = 6-15 cells (100X) (0-5/hpf); Mean Corpuscular HGB CONC 34.3 g/dL (32.0-36.0); Mean Corpuscular Hemoglobin 31.8 pg (27.0-31.0); Mean Corpuscular Volume 92.7 fl (81.0-99.0); Mean Platelet Volume 8.7 fL (7.4-10.4); Microcytosis SLIGHT = 6-15 cells (100X) (0-5/hpf); Platelet Count 157 thou/uL (130-400); RBC Distribution Width 21.6 % (11.5-14.5); White Blood Cell (WBC) Count 4.5 thou/uL (4.8-10.8)
[2018-01-07 19:08] LABS: ALT (SGPT) 29 U/L (8-55); AST (SGOT) 21 U/L (5-34); Albumin 3.8 g/dL (3.5-5.0); Alkaline Phosphatase 70 U/L (40-150); Anion Gap 14 mmol/L (10-20); BUN (Urea Nitrogen) 29 mg/dL (9.8-20.1); Bilirubin, Total 0.5 mg/dL (0.2-1.2); Calc. Creatinine Clearance 0 mL/min (70-130); Calcium 9.5 mg/dL (7.8-10.44); Carbon Dioxide 26 mmol/L (22-29); Chloride 101 mmol/L (98-107); Estimated GFR-MDRD 77; Globulin 3.8 g/dL (2.4-3.5); Glucose 126 mg/dL (70-105); Potassium 5.1 mmol/L (3.5-5.1); Protein, Total 7.6 g/dL (6.0-8.3); Sodium 136 mmol/L (136-145)
[2018-01-07] MEDS ORDERED: Fentanyl 100 MCG/2 ML VIAL ONE ×2 (19:13→21:13)
[2018-01-07 19:34] LABS: Bilirubin Negative (Negative); Blood, Urine Trace (Negative); Clarity Slightly Cloudy (Clear); Glucose, Urine (Dipstick) Negative (Negative); Leukocyte Negative (Negative); Nitrite Negative (Negative); Protein, Urine (Dipstick) Trace mg/dL (Neg-Trace); Specific Gravity, Urine 1.025 (1.005-1.030); Urobilinogen 0.2 mg/dL (0.2-1.0)
[2018-01-07 19:39] LABS: Bacteria/HPF None Seen HPF (None Seen); Crystals/HPF None Seen HPF (Negative); Hyaline Casts/LPF NONE SEEN LPF (0-3 Hyaline); Other Casts/LPF None Seen LPF (0-3 Hyaline); Oval Fat Bodies/HPF None Seen HPF (None Seen); RBC/HPF 0-3 HPF (0-3); Renal Epithelial None Seen HPF (0-3); Sperm/HPF None Seen HPF (None Seen); Squamous Epithelial None Seen HPF (0-3); Transitional Epithelial NONE SEEN HPF (0-3); Trichomonas/HPF None Seen HPF (None Seen); WBC/HPF None Seen HPF (0-3); Yeast-All Forms None Seen HPF (None Seen)
[2018-01-07] MEDS ORDERED: HYDROcodone/Acetaminophen 5/325 mg Tablet ONE (19:49)
[2018-01-07 20:51] VITALS: BMI 37.9
[2018-01-07] MEDS: Sodium Chloride 0.9% 10 ML ONE (21:20)
[2018-01-07] MEDS: Fentanyl 100 MCG/2 ML VIAL SLOW IVP PRN (21:21)
[2018-01-07] MEDS ORDERED: HYDROcodone/Acetaminophen 10/325 mg Tablet PO PRN (21:30)
[2018-01-08] MEDS: HYDROcodone/Acetaminophen 10/325 mg Tablet PO PRN (00:05)
[2018-01-08] MEDS ORDERED: Fentanyl 100 MCG/2 ML VIAL ONE (02:48)
[2018-01-08] MEDS: Fentanyl 100 MCG/2 ML VIAL SLOW IVP PRN (03:04)
[2018-01-08 05:34] LABS: Hemoglobin 8.7 g/dL (12.0-16.0); Platelet Count 124 thou/uL (130-400)
[2018-01-08] MEDS: FLUoxetine HCl 10 MG CAP PO SCH (08:50)
[2018-01-08] MEDS: fentaNYL 50 mcg/hour Patch TD ONE (08:51)
[2018-01-08] MEDS: Enoxaparin Sodium 40 MG/0.4 ML SYRINGE SC SCH (08:53)
[2018-01-08 09:15] VITALS: BP 119/56
[2018-01-08 09:16] VITALS: TEMP 97.6
--- NOTE | 2018-01-08 15:22 | SS ---
DATE OF ADMISSION: 01/07/2018 DATE OF DISCHARGE: 01/08/2018 CHIEF COMPLAINT: Intractable pain. HISTORY OF PRESENT ILLNESS: A 57-year-old female with stage III ovarian cancer status post surgery at [facility] in [place] with excision of omentum, part of spleen , total hysterectomy and scraping or bowel currently on chemotherapy who presented to [facility] Emergency Department with complaints of intractable pain involving neuropathy of her bilateral lower extremities which was effectively inhibiting her ability to ambulate. Her [employer]PER[employer]/ONC physician is Dr. Nina Schuler and her pain management doctor is Dr. Mccullough in [place]. Most recently, the patient has had "burning" of her lumbar nerves to try and effectively treat her neuropathy. She is also taking gabapentin; however, is only able to take this once a day as she reports that more than this causes constipation. The patient has been taking Bennett for her pain and is due to follow up with Dr. Mccullough on Monday at 11:00 a.m.; however, she had run out of her pain medication prior to arrival and was unable to have this refilled prior to presenting here. The patient was started on fentanyl via IV here and her pain is much improved. It was discussed with the patient to place a fentanyl patch and discharge her home with planned follow up on Monday with her pain management physician; she is agreeable with this plan and feels comfortable with returning to her home setting. In addition, she will follow up with her [employer] SUPERVISOR/ONC as planned as she has 1 planned additional chemo treatment in approximately 2 weeks; the patient states that there is discussion for potential bilateral mastectomy thereafter. The patient's labs and vitals are stable and she is amenable to discharge to her home setting with the aforementioned plan. PAST MEDICAL HISTORY: Chronic low back pain, bilateral knee pain, gastroesophageal reflux, depression, anxiety, neuropathy, ovarian cancer. PAST SURGICAL HISTORY: Lumbar surgery, , gastric stapling, cholecystectomy, bilateral total knee replacement 07/2016. Exploratory laparotomy with JEFF-BSO 09/2017 SOCIAL HISTORY: The patient denies smoking or ETOH. Denies illicit drug use. ALLERGIES: BACITRACIN, NEOMYCIN, POLYMYXIN, TRAMADOL and CARISOPRODOL. FAMILY HISTORY: Father is from brain cancer. Daughters are alive. Mother is alive. Otherwise noncontributory. CURRENT MEDICATIONS: Zanaflex 4 mg 2 tabs q.8h. p.r.n., Nexium 40 mg p.o. b.i.d., gabapentin 300 mg p.o. at bedtime, Bennett 10/325 q.8h. p.r.n., Tylenol with codeine q.8h. p.r.n., clonazepam 1 mg p.o. b.i.d., fluoxetine 40 mg p.o. daily. REVIEW OF SYSTEMS: GENERAL: The patient denies fever, chills, diaphoresis. EARS, NOSE AND THROAT: Denies sore throat, nasal drainage or congestion. CARDIOVASCULAR: Denies chest pain or palpitation. RESPIRATORY: Denies shortness of breath or cough. GASTROINTESTINAL: Denies abdominal pain, vomiting, diarrhea or constipation. GENITOURINARY: Denies dysuria. MUSCULOSKELETAL: Complains of joint pain. DERMATOLOGIC: Denies rash. NEUROLOGIC: Denies headache. Complains of neuropathy of bilateral lower extremities. LABORATORY DATA: White blood cell count 4.5, H&H is 8.7 and 25.6, platelet count is 124. Electrolytes are normal. BUN and creatinine is 29 and 0.74 with GFR 81, glucose 126. LFTs are normal. Urinalysis was clear other than trace blood. PHYSICAL EXAMINATION: VITAL SIGNS: Temperature is 97.6, pulse is 57, respiratory rate is 20, O2 is 99 % on room air, blood pressure is 116/56. GENERAL: The patient is alert, oriented to person, place, time, and situation. She is overweight. FACE: No asymmetry. EYES: Conjunctivae are clear. Extraocular muscles are intact bilaterally. No discharge. ENT: Head, eyes, ears, nose and throat within normal limits. Oral cavity with dry mucous membranes. NECK: Thyroid, supple, full range of motion. No lymphadenopathy, no meningeal signs. CARDIOVASCULAR: Regular rate and rhythm, normal S1, S2. No murmurs, rubs or gallops. RESPIRATORY: Clear to auscultation bilaterally. CHEST: There is a port to the right chest wall. GASTROINTESTINAL: There is approximately a 35 cm well-healed vertical surgical site extending from the mid abdomen down to the suprapubic area. EXTREMITIES: Nonpitting edema, bilateral lower extremities with varicose veins. SKIN: Healed surgical incision site over bilateral anterior knees, skin tags around base of neck. NEUROLOGICAL: Nonfocal exam. Cranial nerves II-XII are grossly intact. ASSESSMENT AND PLAN: 1. Neuropathy. The patient will continue her daily dosing of gabapentin. She will be discharged with a fentanyl patch to tie her over until her appointment with her pain management provider on Monday at 11:00 a.m. 2. Malignant neoplasm of the ovary. The patient will follow up with her [employer]W SUPERVISOR/ ONC as scheduled. She has one further planned additional chemo treatment in approximately 2 weeks. 3. Genetic susceptibility to malignant neoplasm of breast. The patient has potential surgical intervention with a bilateral mastectomy to be discussed further. 4. Chronic pain. The patient does have a pain management provider and we will continue her usual medications upon followup. As stated, we will provide a fentanyl patch to bridge this gap. 5. Anxiety and depression. The patient will continue her usual medications for this including SSRI and benzodiazepine therapy. DISPOSITION: The patient is stable and amenable to discharge to her home setting with fentanyl patch and plan follow up with her pain management provider on Monday at 11:00 a.m. [facility]
[2018-01-08] MEDS ORDERED: clonazePAM 0.5 MG TAB PO SCH (21:00)
[2018-01-08] MEDS ORDERED: Gabapentin 300 MG CAP PO SCH (21:00)
[2018-01-08] MEDS ORDERED: tiZANidine HCl 4 MG TAB PO SCH (21:00)
== END 2018-01-08 10:00 | disposition home or self-care (01) ==
LOC: BURERS 17:57 → BURMED 20:00
PROVIDERS: ADMIT Family Medicine; ATTEND Family Medicine
DX: G62.9 Polyneuropathy, unspecified (principal); C56.9 Malignant neoplasm of unspecified ovary; G89.29 Other chronic pain; M54.5 Low back pain; K21.9 Gastro-esophageal reflux disease without esophagitis; F32.9 Major depressive disorder, single episode, unspecified; F41.9 Anxiety disorder, unspecified; Z15.01 Genetic susceptibility to malignant neoplasm of breast; Z79.899 Other long term (current) drug therapy; Z88.1 Allergy status to other antibiotic agents; Z88.8 Allergy status to other drugs, medicaments and biological substances; Z88.5 Allergy status to narcotic agent
CPT/HCPCS: 80053; 81003; 81015; 82565; 85014; 85018; 85025; 85049; 96361; 96365; 96372; 96375; 96376; A4216; G0378; J1642; J1650; J1885; J2550; J3010

== ENCOUNTER 2018-01-12 17:57 | Emergency (ER) | payer MEDICARE ==
[2018-01-12 19:01] LABS: Hemoglobin 9.1 g/dL (12.0-16.0); Mean Corpuscular HGB CONC 32.6 g/dL (32.0-36.0); Mean Corpuscular Hemoglobin 30.6 pg (27.0-31.0); Mean Corpuscular Volume 93.9 fl (81.0-99.0); Mean Platelet Volume 8.2 fL (7.4-10.4); Platelet Count 100 thou/uL (130-400); RBC Distribution Width 20.9 % (11.5-14.5); Red Blood Cell (RBC) Count 2.99 mill/uL (4.20-5.40)
[2018-01-12] MEDS ORDERED: Prochlorperazine 10 MG/2 ML VIAL ONE (19:01)
[2018-01-12 19:16] LABS: ALT (SGPT) 43 U/L (8-55); AST (SGOT) 23 U/L (5-34); Albumin 3.9 g/dL (3.5-5.0); Alkaline Phosphatase 71 U/L (40-150); Anion Gap 18 mmol/L (10-20); BUN (Urea Nitrogen) 17 mg/dL (9.8-20.1); Bilirubin, Total 0.4 mg/dL (0.2-1.2); Calc. Creatinine Clearance 0 mL/min (70-130); Calcium 9.6 mg/dL (7.8-10.44); Carbon Dioxide 22 mmol/L (22-29); Chloride 103 mmol/L (98-107); Estimated GFR-MDRD 76; Globulin 4.1 g/dL (2.4-3.5); Glucose 94 mg/dL (70-105); Potassium 4.7 mmol/L (3.5-5.1); Sodium 138 mmol/L (136-145)
[2018-01-12 19:18] LABS: Band 3 % (5-11); Lymphocytes 63 % (21-51); MDiff Complete? YES; Monocytes 13 % (0-10); Neutrophil 17 % (42-75); Reactive Lymphocytes 3 % (0-10)
[2018-01-12 19:45] LABS: Bilirubin Negative (Negative); Blood, Urine Negative (Negative); Clarity Clear (Clear); Glucose, Urine (Dipstick) Negative (Negative); Leukocyte Negative (Negative); Nitrite Negative (Negative); Protein, Urine (Dipstick) Negative (Neg-Trace); Specific Gravity, Urine 1.025 (1.005-1.030); Urobilinogen 0.2 mg/dL (0.2-1.0)
[2018-01-12] MEDS ORDERED: Ketorolac Tromethamine 30 MG/ML VIAL ONE (19:45)
== END 2018-01-12 20:38 | disposition home or self-care (01) ==
LOC: BURERS 17:57
DX: R19.7 Diarrhea, unspecified (principal); R11.0 Nausea; K21.9 Gastro-esophageal reflux disease without esophagitis; F41.9 Anxiety disorder, unspecified; F32.9 Major depressive disorder, single episode, unspecified; F17.210 Nicotine dependence, cigarettes, uncomplicated; Z85.43 Personal history of malignant neoplasm of ovary; Z79.899 Other long term (current) drug therapy
CPT/HCPCS: 80053; 81003; 85025; 96361; 96374; 96375; J0780; J1885

== ENCOUNTER 2018-01-30 12:21 | Emergency (ER) | payer MEDICARE ==
[2018-01-30 13:10] LABS: #Basophils 0.1 thou/uL (0.0-0.2); #Eosinphils 0.2 thou/uL (0.0-0.7); #Lymphocytes 2.2 thou/uL (1.20-3.40); #Monocytes 0.5 thou/uL (0.11-0.59); #Neutrophils 2.4 thou/uL (1.40-6.50); %Basophils 1.3 % (0.0-1.0); %Eosinophils 3.1 % (0.0-10.0); %Lymphocytes 41.3 % (21.0-51.0); %Monocytes 8.7 % (0.0-10.0); %Neutrophils 45.6 % (42.0-75.0); Mean Corpuscular Hemoglobin 31.6 pg (27.0-31.0); Mean Corpuscular Volume 95.7 fl (81.0-99.0); Mean Platelet Volume 7.8 fL (7.4-10.4); Platelet Count 102 thou/uL (130-400); RBC Distribution Width 19.8 % (11.5-14.5); Red Blood Cell (RBC) Count 3.17 mill/uL (4.20-5.40); White Blood Cell (WBC) Count 5.2 thou/uL (4.8-10.8)
[2018-01-30 13:22] LABS: ALT (SGPT) 46 U/L (8-55); AST (SGOT) 44 U/L (5-34); Albumin 3.6 g/dL (3.5-5.0); Alkaline Phosphatase 76 U/L (40-150); Anion Gap 14 mmol/L (10-20); BUN (Urea Nitrogen) 12 mg/dL (9.8-20.1); Bilirubin, Total 0.2 mg/dL (0.2-1.2); Calc. Creatinine Clearance 0 mL/min (70-130); Calcium 9.4 mg/dL (7.8-10.44); Carbon Dioxide 25 mmol/L (22-29); Chloride 104 mmol/L (98-107); Estimated GFR-MDRD 78; Globulin 3.8 g/dL (2.4-3.5); Glucose 110 mg/dL (70-105); Lipase 63 U/L (8-78); Potassium 3.9 mmol/L (3.5-5.1); Protein, Total 7.4 g/dL (6.0-8.3); Sodium 139 mmol/L (136-145)
[2018-01-30] MEDS ORDERED: Fentanyl 100 MCG/2 ML VIAL ONE (13:24)
[2018-01-30 13:58] LABS: Bilirubin Negative (Negative); Blood, Urine Negative (Negative); Clarity Clear (Clear); Glucose, Urine (Dipstick) Negative (Negative); Leukocyte Negative (Negative); Nitrite Negative (Negative); Protein, Urine (Dipstick) Trace mg/dL (Neg-Trace); Specific Gravity, Urine 1.025 (1.005-1.030); Urobilinogen 0.2 mg/dL (0.2-1.0); pH, Urine 6.5 (5.0-9.0)
== END 2018-01-30 14:10 | disposition home or self-care (01) ==
LOC: BURERS 12:21
DX: R10.11 Right upper quadrant pain (principal); K21.9 Gastro-esophageal reflux disease without esophagitis; F41.9 Anxiety disorder, unspecified; F32.9 Major depressive disorder, single episode, unspecified; F17.210 Nicotine dependence, cigarettes, uncomplicated
CPT/HCPCS: 80053; 81003; 83690; 85025; 96361; 96374; J3010

== ENCOUNTER 2018-04-23 19:41 | Emergency (ER) | payer MEDICARE ==
--- NOTE | 2018-04-24 00:46 | RAD ---
ACUTE ABDOMEN SERIES: 04/23/2018 FINDINGS: Supine and erect films show no free air beneath the diaphragm. An air-fluid level is seen in the sto mach. A few short air-fluid levels are seen in the proximal transverse colon and perhaps a little bi t of small bowel, but no loops are really dilated to suggest obstruction. Gas is seen all the way to the rectum. A moderate amount of fecal material is seen in the colon. Clips are noted in the right upper quadrant from a prior operative procedure. Soft tissues are unremarkable. A chest film in the series is compared with a 12/23/2017 study. Mild cardiomegaly is about the same. A Mediport catheter is in place and unchanged. The lungs are clear. There are no effusions or sig ns of edema. IMPRESSION: Nonspecific abdominal findings. POS: HOME
== END 2018-04-23 21:10 | disposition home or self-care (01) ==
LOC: BURERS 19:41
DX: R10.13 Epigastric pain (principal); K21.9 Gastro-esophageal reflux disease without esophagitis; F41.9 Anxiety disorder, unspecified; F32.9 Major depressive disorder, single episode, unspecified; F17.210 Nicotine dependence, cigarettes, uncomplicated; Z79.899 Other long term (current) drug therapy
CPT/HCPCS: 74022

== ENCOUNTER 2018-12-12 15:44 | Emergency (ER) | payer MEDICARE ==
[2018-12-12 16:11] LABS: #Basophils 0.1 thou/uL (0.0-0.2); #Eosinphils 0.2 thou/uL (0.0-0.7); #Lymphocytes 2.5 thou/uL (1.20-3.40); #Monocytes 0.4 thou/uL (0.11-0.59); #Neutrophils 4.8 thou/uL (1.40-6.50); %Basophils 1.2 % (0.0-1.0); %Eosinophils 2.3 % (0.0-10.0); %Lymphocytes 31.7 % (21.0-51.0); %Monocytes 4.4 % (0.0-10.0); %Neutrophils 60.4 % (42.0-75.0); Hemoglobin 11.8 g/dL (12.0-16.0); Mean Corpuscular HGB CONC 31.6 g/dL (32.0-36.0); Mean Platelet Volume 7.3 fL (7.4-10.4); Platelet Count 203 thou/uL (130-400); RBC Distribution Width 14.2 % (11.5-14.5); Red Blood Cell (RBC) Count 3.93 mill/uL (4.20-5.40); White Blood Cell (WBC) Count 7.9 thou/uL (4.8-10.8)
[2018-12-12 16:26] LABS: ALT (SGPT) 15 U/L (8-55); AST (SGOT) 14 U/L (5-34); Albumin 3.8 g/dL (3.5-5.0); Alkaline Phosphatase 100 U/L (40-150); Anion Gap 14 mmol/L (10-20); BUN (Urea Nitrogen) 14 mg/dL (9.8-20.1); Bilirubin, Total 0.3 mg/dL (0.2-1.2); Calc. Creatinine Clearance 0 mL/min (70-130); Calcium 9.5 mg/dL (7.8-10.44); Carbon Dioxide 24 mmol/L (22-29); Chloride 106 mmol/L (98-107); Estimated GFR-MDRD 65; Glucose 115 mg/dL (70-105); Potassium 4.1 mmol/L (3.5-5.1); Protein, Total 7.8 g/dL (6.0-8.3); Sodium 140 mmol/L (136-145)
--- NOTE | 2018-12-12 22:11 | RAD ---
CHEST 2 VIEWS: Date: 12/12/18 Comparison is made with the 12/23/17 study. An epidural stimulator appears to be present in the mid thoracic region. The heart is upper normal in size, but unchanged from before. There is no vascular congestion, edema, or major pulmonary infiltra te. IMPRESSION: No acute findings. POS: HOME
== END 2018-12-12 17:00 | disposition home or self-care (01) ==
LOC: BURERS 15:44
DX: R07.89 Other chest pain (principal); B34.9 Viral infection, unspecified; K21.9 Gastro-esophageal reflux disease without esophagitis; F41.9 Anxiety disorder, unspecified; F32.9 Major depressive disorder, single episode, unspecified; F17.210 Nicotine dependence, cigarettes, uncomplicated; Z79.899 Other long term (current) drug therapy
CPT/HCPCS: 71046; 80053; 84484; 85025; 85379; 93005

== ENCOUNTER → 2019-03-09 | Emergency (ER) | payer MEDICARE | LOC: BURERS 20:01 | DX: A08.4 Viral intestinal infection, unspecified (principal); F17.210 Nicotine dependence, cigarettes, uncomplicated; F41.9 Anxiety disorder, unspecified; F32.9 Major depressive disorder, single episode, unspecified; Z79.899 Other long term (current) drug therapy; K21.9 Gastro-esophageal reflux disease without esophagitis | CPT/HCPCS: 99283 ==

== ENCOUNTER 2019-08-08 00:51 | Emergency (ER) | payer MEDICARE ==
[2019-08-08] MEDS ORDERED: Fentanyl 100 MCG/2 ML VIAL ONE (01:25)
[2019-08-08 01:37] LABS: #Basophils 0.2 thou/uL (0.0-0.2); #Eosinphils 0.5 thou/uL (0.0-0.7); #Lymphocytes 2.5 thou/uL (1.20-3.40); #Monocytes 0.8 thou/uL (0.11-0.59); #Neutrophils 6.7 thou/uL (1.40-6.50); %Basophils 1.5 % (0.0-1.0); %Eosinophils 4.7 % (0.0-10.0); %Lymphocytes 23.1 % (21.0-51.0); %Monocytes 7.4 % (0.0-10.0); %Neutrophils 63.4 % (42.0-75.0); Hemoglobin 11.8 g/dL (12.0-16.0); Mean Corpuscular HGB CONC 30.2 g/dL (32.0-36.0); Mean Corpuscular Hemoglobin 27.5 pg (27.0-31.0); Mean Corpuscular Volume 91.2 fL (78.0-98.0); Platelet Count 312 thou/uL (130-400); RBC Distribution Width 14.1 % (11.5-14.5); Red Blood Cell (RBC) Count 4.27 mill/uL (4.20-5.40); White Blood Cell (WBC) Count 10.6 thou/uL (4.8-10.8)
[2019-08-08 01:41] LABS: ALT (SGPT) 28 U/L (8-55); AST (SGOT) 23 U/L (5-34); Albumin 3.7 g/dL (3.5-5.0); Alkaline Phosphatase 108 U/L (40-110); Anion Gap 16 mmol/L (10-20); BUN (Urea Nitrogen) 10 mg/dL (9.8-20.1); Bilirubin, Total 0.3 mg/dL (0.2-1.2); Calc. Creatinine Clearance 0 mL/min (70-130); Calcium 9.7 mg/dL (7.8-10.44); Carbon Dioxide 27 mmol/L (22-29); Chloride 101 mmol/L (98-107); Estimated GFR-MDRD 73; Globulin 4.2 g/dL (2.4-3.5); Glucose 116 mg/dL (70-105); Potassium 4.2 mmol/L (3.5-5.1); Protein, Total 7.9 g/dL (6.0-8.3); Sodium 140 mmol/L (136-145)
--- NOTE | 2019-08-08 08:24 | CT ---
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 Initial Report created on 08/08/2019 2:30 AM Centra l Time ([place] & [place]) PROCEDURE INFORMATION: Exam: CT Neck With Contrast Exam date and time: 08/08/2019 1:52 AM Clinical history: 58 years old, female; Neck pain; Prior surgery; Surgery date: 3-7 days postoperativ e; Patient HX: Neck surg 07-30-19 now sevre pain with bilat arm pain TECHNIQUE: Imaging protocol: Computed tomography images of the neck with intravenous contrast. Radiation optimization: All CT scans at this facility use at least one of these dose optimization tammy hniques: automated exposure control; mA and/or kV adjustment per patient size (includes targeted exam s where dose is matched to clinical indication); or iterative reconstruction. Contrast material: ISOVUE 370; Contrast volume: 95 ml; Contrast route: 22GA LF WRIST; COMPARISON: No relevant prior studies available. FINDINGS: Nasopharynx: Unremarkable. Oropharynx: Unremarkable. No significant tonsillar enlargement. Hypopharynx: Unremarkable Larynx: Unremarkable. Normal epiglottis. Retropharyngeal space: Unremarkable. Submandibular/Parotid glands: Normal. Glands are normal in size. Thyroid: Normal. No enlarged or calcified nodules. Lymph nodes: Unremarkable. No lymphadenopathy. Trachea: Visualized trachea is unremarkable. Lungs: Unremarkable as visualized. Bones/joints: There are postoperative changes of anterior intervertebral fusion from C4-C6. There is fat stranding, nonloculated fluid and soft tissue emphysema in the right neck extending to the level of postoperative change consistent with operative approach with no visible discrete abscess. There is mo derate right C5-6 neural foraminal stenosis. Soft tissues: See Bones/joints Finding. IMPRESSION: 1. There are postoperative changes of anterior intervertebral fusion from C4-C6. There is fat strandi ng, nonloculated fluid and soft tissue emphysema in the right neck extending to the level of postoper ative change consistent with operative approach with no visible discrete abscess. 2. There is moderate right C5-6 neural foraminal stenosis. Thank you for allowing us to participate in the care of your patient. Dictated and Authenticated by: Omega Valenzuela MD 08/08/2019 2:30 AM Central Time ([place] & [place]) FINAL REPORT CT OF THE NECK WITH CONTRAST: DATE: 08/08/2019. FINDINGS: The patient is recently post anterior cervical fusion at the C4 through C6 levels. She presents with severe neck pain and axillary pain. Axial slices were acquired after injection of contrast and mode nal and sagittal reconstructions were then done. There is an area of fat stranding and locules of free air in the operative bed on the right side of t he neck that began at the top of the C4 level. There is some fluid in the areas of fat stranding. F at stranding is seen out to the skin surface. There is very slight deviation of the laryngotracheal region on this side towards the left due to the swelling. A discrete abscess is not indicated at thi s time, though there are a few of the small air locules that do have fluid within them. Fluid is oth erwise dispersed throughout the tissues. The fusion is noted. There is moderate right foraminal dolores nosis at the C5-C6 level. The positioning of the synthetic disk spacers seems as expected. IMPRESSION: 1. Postoperative changes of anterior cervical fusion at the C4 through C6 levels. Fat stranding, fl uid, and soft tissue air are present. This generally would be considered postoperative change in the operative bed. A discrete abscess is not visible at this time, though I cannot speak to whether any of the small areas of soft tissue emphysema with fluid in them might not be infected. 2. Moderate right foraminal stenosis at C5-C6. Report in agreement with preliminary reading by SHOBHA. POS: [facility]
[2019-08-08] MEDS ORDERED: Iopamidol 370 76% 100 ML VIAL ONE (10:51)
== END 2019-08-08 02:50 | disposition home or self-care (01) ==
LOC: BURERS 00:51
DX: M54.2 Cervicalgia (principal); K21.9 Gastro-esophageal reflux disease without esophagitis; F41.9 Anxiety disorder, unspecified; F32.9 Major depressive disorder, single episode, unspecified; F17.210 Nicotine dependence, cigarettes, uncomplicated; Z79.899 Other long term (current) drug therapy; Z79.891 Long term (current) use of opiate analgesic
CPT/HCPCS: 70491; 80053; 85025; 96374; J3010; Q9967

== ENCOUNTER 2019-10-08 09:28 | Outpatient (CLI) | payer MEDICARE ==
--- NOTE | 2019-10-08 18:21 | RAD ---
LEFT WRIST THREE VIEWS: 10/08/19 No fracture was seen. The carpal relationships appear normal. The sclerotic area in the distal radial shaft is benign in appearance. The metacarpals were unremarkable. IMPRESSION: No acute finding. POS: HOME
--- NOTE | 2019-10-08 18:22 | RAD ---
LEFT KNEE TWO VIEWS: 10/08/19 Comparison is made with a prior study of 11/28/16. There has been no adverse interval change. The knee arthroplasty is normal in appearance and shows no sign of loosening or infection. There is no sign of joint effusion. IMPRESSION: No acute findings. POS: HOME
--- NOTE | 2019-10-08 18:25 | RAD ---
RIGHT KNEE TWO VIEWS: 10/08/19 Comparison is made with a 11/28/16 study. The right knee arthroplasty is noted with no sign of loosening or infection of the hardware. No fract ure or other bony abnormality of concern was present. There is no sign of a large effusion. IMPRESSION: No significant findings. POS: HOME
--- NOTE | 2019-10-08 18:54 | RAD ---
LEFT FOOT THREE VIEWS: 10/08/19 While a prior study was done in 2011, the images were unable to be loaded on the PACS system. There i s irregularity at the base of the proximal phalanx of the fifth toe. This is probably old, but this f inding should be compared with the clinical exam. If there is current pain here, then dedicated toe i mage should be obtained to rule out an acute fracture. Otherwise, there were no acute findings in the foot to suggest trauma. A large calcaneal spur is present. No periosteal reaction is seen. IMPRESSION: No definite acute findings. See comments above regarding the proximal phalanx of the fifth toe. Consi raimundo further images if this is the symptomatic area. Code T POS: HOME
== END 2019-10-08 09:29 | disposition home or self-care (01) ==
LOC: BURRAD 09:28
PROVIDERS: ATTEND Family Medicine
DX: M25.561 Pain in right knee (principal); M25.562 Pain in left knee; M79.672 Pain in left foot; M25.532 Pain in left wrist

== ENCOUNTER 2019-11-12 19:09 | Emergency (ER) | payer MEDICARE ==
[~2019-11-12 19:09] MED LIST: Iopamidol 370 76% 100 ML VIAL ONE
[2019-11-12 19:51] LABS: #Basophils 0.1 thou/uL (0.0-0.2); #Eosinphils 0.2 thou/uL (0.0-0.7); #Lymphocytes 1.9 thou/uL (1.20-3.40); #Monocytes 0.6 thou/uL (0.11-0.59); #Neutrophils 6.4 thou/uL (1.40-6.50); %Basophils 1.1 % (0.0-1.0); %Eosinophils 1.7 % (0.0-10.0); %Lymphocytes 20.7 % (21.0-51.0); %Monocytes 6.2 % (0.0-10.0); %Neutrophils 70.4 % (42.0-75.0); Hemoglobin 11.4 g/dL (12.0-16.0); Mean Corpuscular HGB CONC 31.4 g/dL (32.0-36.0); Mean Corpuscular Hemoglobin 27.7 pg (27.0-31.0); Mean Corpuscular Volume 88.1 fL (78.0-98.0); Platelet Count 267 thou/uL (130-400); RBC Distribution Width 14.7 % (11.5-14.5); Red Blood Cell (RBC) Count 4.12 mill/uL (4.20-5.40); White Blood Cell (WBC) Count 9.1 thou/uL (4.8-10.8)
[2019-11-12 20:07] LABS: ALT (SGPT) 23 U/L (8-55); AST (SGOT) 18 U/L (5-34); Albumin 3.7 g/dL (3.5-5.0); Alkaline Phosphatase 94 U/L (40-110); Anion Gap 13 mmol/L (10-20); BUN (Urea Nitrogen) 13 mg/dL (9.8-20.1); Bilirubin, Total 0.4 mg/dL (0.2-1.2); Calc. Creatinine Clearance 0 mL/min (70-130); Calcium 9.1 mg/dL (7.8-10.44); Carbon Dioxide 26 mmol/L (22-29); Chloride 103 mmol/L (98-107); Estimated GFR-MDRD 67; Globulin 3.7 g/dL (2.4-3.5); Glucose 106 mg/dL (70-105); Lipase 21 U/L (8-78); Potassium 4.1 mmol/L (3.5-5.1); Protein, Total 7.4 g/dL (6.0-8.3); Sodium 138 mmol/L (136-145)
[2019-11-12] MEDS ORDERED: Fentanyl 100 MCG/2 ML VIAL ONE (20:07)
[2019-11-12 20:29] LABS: Bilirubin Negative (Negative); Blood, Urine Negative (Negative); Clarity Slightly Cloudy (Clear); Glucose, Urine (Dipstick) Negative (Negative); Leukocyte Negative (Negative); Nitrite Negative (Negative); Protein, Urine (Dipstick) Negative (Neg-Trace); Urobilinogen 0.2 mg/dL (Less than 2)
[2019-11-12] MEDS ORDERED: HYDROmorphone 0.5 MG/0.5 ML SYRINGE ONE (20:52)
[2019-11-12] MEDS ORDERED: Promethazine HCl 25 MG/ML VIAL ONE (20:57)
--- NOTE | 2019-11-12 21:01 | CT ---
CT ABDOMEN AND PELVIS WITH CONTRAST: 11/12/[address] of the abdomen and pelvis was done after giving IV contrast. The patient presents with left upper quadrant pain and a history of ovarian cancer. Comparison is made with the prior CT study of 10/10/17. The major finding on the study is a ventral hernia through the anterior abdominal wall, a few centime ters above the umbilical level, just to the right of midline. A loop of small bowel protrudes through the defect. The small bowel proximal to it is mildly dilated (3 cm) and contains air fluid levels wi thin it. This defect and hernia were not present on the 2018 scan. No free air or free fluid was dete cted in the abdomen. The lung bases are clear. The liver, spleen, pancreas, kidneys, and abdominal aorta showed no acute f indings. There is a tiny subcentimeter cyst in the left kidney. There has been a prior cholecystectom y. Low density adrenal masses are present bilaterally as before. The left adrenal mass measures about 3.6 cm in size and the right adrenal mass about 3.[address] numbers are around 18 to 20 in each. Neit her has changed in size, shape or character over the interval. The remainder of the bowel is unremarkable. No colonic dilation was seen. No mesenteric adenopathy wa s appreciated. No thickening of bowel wall was seen. CT of the pelvis showed no pelvic masses, fluid collections, adenopathy, or other acute changes. The patient does have an epidural catheter in place. Some degenerative changes are seen in the spine. IMPRESSION: Ventral hernia just a few centimeters above the umbilicus and to the right of midline. This appears t o contain incarcerated small bowel and is causing some mild proximal obstruction. Findings discussed with Dr. Puente at 2042 on 11/12/2019. POS: HOME
== END 2019-11-12 21:38 | disposition home or self-care (01) ==
LOC: BURERS 19:09
DX: K43.9 Ventral hernia without obstruction or gangrene (principal); K21.9 Gastro-esophageal reflux disease without esophagitis; F41.9 Anxiety disorder, unspecified; F32.9 Major depressive disorder, single episode, unspecified; F17.210 Nicotine dependence, cigarettes, uncomplicated; Z79.899 Other long term (current) drug therapy
CPT/HCPCS: 74177; 80053; 81003; 83605; 83690; 85025; 96374; 96375; J1170; J2550; J3010; Q9967

== ENCOUNTER 2019-11-13 09:37 | Emergency (ER) | payer MEDICARE ==
[2019-11-13 10:31] LABS: #Basophils 0.1 thou/uL (0.0-0.2); #Eosinphils 0.1 thou/uL (0.0-0.7); #Lymphocytes 1.4 thou/uL (1.20-3.40); #Monocytes 0.6 thou/uL (0.11-0.59); #Neutrophils 8.1 thou/uL (1.40-6.50); %Basophils 0.8 % (0.0-1.0); %Eosinophils 0.9 % (0.0-10.0); %Lymphocytes 13.4 % (21.0-51.0); %Monocytes 5.8 % (0.0-10.0); %Neutrophils 79.2 % (42.0-75.0); Hemoglobin 11.9 g/dL (12.0-16.0); Mean Corpuscular HGB CONC 31.2 g/dL (32.0-36.0); Mean Corpuscular Hemoglobin 27.2 pg (27.0-31.0); Mean Platelet Volume 7.8 fL (7.4-10.4); Platelet Count 286 thou/uL (130-400); RBC Distribution Width 14.6 % (11.5-14.5); Red Blood Cell (RBC) Count 4.38 mill/uL (4.20-5.40); White Blood Cell (WBC) Count 10.2 thou/uL (4.8-10.8)
[2019-11-13 10:37] LABS: ALT (SGPT) 24 U/L (8-55); AST (SGOT) 18 U/L (5-34); Albumin 3.9 g/dL (3.5-5.0); Alkaline Phosphatase 98 U/L (40-110); Anion Gap 15 mmol/L (10-20); BUN (Urea Nitrogen) 12 mg/dL (9.8-20.1); Bilirubin, Total 0.5 mg/dL (0.2-1.2); Calc. Creatinine Clearance 0 mL/min (70-130); Calcium 9.6 mg/dL (7.8-10.44); Carbon Dioxide 26 mmol/L (22-29); Chloride 102 mmol/L (98-107); Estimated GFR-MDRD 67; Globulin 3.9 g/dL (2.4-3.5); Glucose 118 mg/dL (70-105); Potassium 4.2 mmol/L (3.5-5.1); Protein, Total 7.8 g/dL (6.0-8.3); Sodium 139 mmol/L (136-145)
[2019-11-13 10:45] LABS: Prothrombin Time 13.4 SEC (12.0-14.7)
[2019-11-13] MEDS ORDERED: HYDROmorphone 0.5 MG/0.5 ML SYRINGE ONE (11:19)
== END 2019-11-13 12:04 | disposition short-term general hospital (02) ==
LOC: BURERS 09:37
DX: K43.9 Ventral hernia without obstruction or gangrene (principal); K21.9 Gastro-esophageal reflux disease without esophagitis; F41.9 Anxiety disorder, unspecified; F32.9 Major depressive disorder, single episode, unspecified; F17.210 Nicotine dependence, cigarettes, uncomplicated; R11.10 Vomiting, unspecified; Z79.899 Other long term (current) drug therapy
CPT/HCPCS: 36415; 80053; 85025; 85610; 96374; J1170

== ENCOUNTER 2020-04-05 16:17 | Emergency (ER) | payer MEDICARE ==
[2020-04-05 16:36] LABS: Bilirubin Negative (Negative); Blood, Urine Negative (Negative); Clarity Hazy (Clear); Glucose, Urine (Dipstick) Negative (Negative); Ketone, Urine Negative (Negative); Leukocyte Negative (Negative); Nitrite Negative (Negative); Protein, Urine (Dipstick) Negative (Neg-Trace); Specific Gravity, Urine 1.025 (1.005-1.030)
== END 2020-04-05 16:57 | disposition home or self-care (01) ==
LOC: BURERS 16:17
DX: G89.29 Other chronic pain (principal); R10.12 Left upper quadrant pain; T47.2X5A Adverse effect of stimulant laxatives, initial encounter; K21.9 Gastro-esophageal reflux disease without esophagitis; F41.9 Anxiety disorder, unspecified; F32.9 Major depressive disorder, single episode, unspecified; Z87.891 Personal history of nicotine dependence; Z79.899 Other long term (current) drug therapy
CPT/HCPCS: 81003; 99284

== ENCOUNTER 2020-04-30 08:17 | Outpatient (CLI) | payer MEDICARE ==
--- NOTE | 2020-04-30 11:09 | CT ---
CT abdomen and pelvis with IV and oral contrast HISTORY: Right lower quadrant pain. COMPARISON: 11/12/2019. FINDINGS: Calcified granulomata of the lung bases and spleen consistent with healed granulomatous dis ease. Extensive postoperative changes of the abdomen are evident, including cholecystectomy, bariatric gastric surgery, and interval reparation of ventral abdominal wall hernia. Left adrenal adenoma is stable. No evidence of bowel obstruction or inflammation. Appendix is unremarkable. Urinary bladder has normal appearance. There are degenerative changes of the lumbar spine. Dorsal column spinal stimulator again demonstrate d. IMPRESSION : Postoperative and other chronic-type findings are stable. No acute abnormalities are demonstrated
[2020-04-30] MEDS ORDERED: Iopamidol 370 76% 100 ML VIAL ONE (15:18)
== END 2020-04-30 08:18 | disposition home or self-care (01) ==
LOC: BURCT 08:17
PROVIDERS: ATTEND Family Medicine
DX: R10.31 Right lower quadrant pain (principal); J84.10 Pulmonary fibrosis, unspecified; M47.816 Spondylosis without myelopathy or radiculopathy, lumbar region; D35.02 Benign neoplasm of left adrenal gland; Z90.49 Acquired absence of other specified parts of digestive tract; Z98.84 Bariatric surgery status
CPT/HCPCS: 74177; Q9967

== ENCOUNTER 2020-12-14 19:45 | Emergency (ER) | payer OTHER ==
[2020-12-14 21:03] LABS: #Basophils 0.1 thou/uL (0.0-0.2); #Eosinphils 0.1 thou/uL (0.0-0.7); #Lymphocytes 1.9 thou/uL (1.20-3.40); #Monocytes 0.1 thou/uL (0.11-0.59); #Neutrophils 2.6 thou/uL (1.40-6.50); %Basophils 1.3 % (0.0-1.0); %Eosinophils 1.1 % (0.0-10.0); %Lymphocytes 40.1 % (21.0-51.0); %Monocytes 2.7 % (0.0-10.0); %Neutrophils 54.8 % (42.0-75.0); Hemoglobin 11.7 g/dL (12.0-16.0); Mean Corpuscular HGB CONC 30.6 g/dL (32.0-36.0); Mean Corpuscular Hemoglobin 26.6 pg (27.0-31.0); Mean Platelet Volume 7.6 fL (7.4-10.4); Platelet Count 200 thou/uL (130-400); RBC Distribution Width 15.6 % (11.5-14.5); Red Blood Cell (RBC) Count 4.38 mill/uL (4.20-5.40); White Blood Cell (WBC) Count 4.8 thou/uL (4.8-10.8)
[2020-12-14] MEDS ORDERED: Promethazine HCl 25 MG/ML VIAL ONE (21:10)
[2020-12-14 21:20] LABS: ALT (SGPT) 80 U/L (8-55); AST (SGOT) 56 U/L (5-34); Albumin 3.6 g/dL (3.5-5.0); Alkaline Phosphatase 98 U/L (40-110); Anion Gap 16 mmol/L (10-20); BUN (Urea Nitrogen) 15 mg/dL (9.8-20.1); Bilirubin, Total 0.6 mg/dL (0.2-1.2); Calc. Creatinine Clearance 0 mL/min (70-130); Calcium 8.7 mg/dL (7.8-10.44); Carbon Dioxide 26 mmol/L (22-29); Chloride 101 mmol/L (98-107); Globulin 4.1 g/dL (2.4-3.5); Glucose 118 mg/dL (70-105); Lipase 36 U/L (8-78); Potassium 3.9 mmol/L (3.5-5.1); Protein, Total 7.7 g/dL (6.0-8.3); Sodium 139 mmol/L (136-145)
[2020-12-14] MEDS ORDERED: HYDROmorphone 0.5 MG/0.5 ML SYRINGE ONE (21:56)
[2020-12-14 22:41] LABS: Bilirubin Small (Negative); Blood, Urine Trace (Negative); Clarity Clear (Clear); Glucose, Urine (Dipstick) Negative (Negative); Ketone, Urine Negative (Negative); Leukocyte Negative (Negative); Nitrite Negative (Negative); Protein, Urine (Dipstick) 100 mg/dL (Neg-Trace); pH, Urine 5.5 (5.0-9.0)
[2020-12-15 00:03] LABS: RBC/HPF 0-3 HPF (0-3); Squamous Epithelial 0-3 HPF (0-3); WBC/HPF 0-3 HPF (0-3)
[2020-12-15 00:04] LABS: Bacteria/HPF Rare-Few HPF (None Seen); Mucous/LPF 1+ LPF (<2+); Yeast-Budding None Seen HPF (None Seen)
== END 2020-12-14 23:42 | disposition home or self-care (01) ==
LOC: BURERS 19:45
DX: R10.12 Left upper quadrant pain (principal); R19.7 Diarrhea, unspecified; R74.01 Elevation of levels of liver transaminase levels; K21.9 Gastro-esophageal reflux disease without esophagitis; Z87.891 Personal history of nicotine dependence
CPT/HCPCS: 74018; 80053; 81003; 81015; 83690; 84484; 85025; 93005; 96372; 96374; 96375; J0500; J1170; J1642; J2550

== ENCOUNTER 2021-05-24 20:48 | Emergency (ER) | payer OTHER ==
[2021-05-24] MEDS ORDERED: Ketorolac Tromethamine 30 MG/ML VIAL ONE (21:09)
[2021-05-24] MEDS ORDERED: Ondansetron PF 4 MG/2 ML Vial ONE (21:09)
[2021-05-24 21:20] LABS: #Eosinphils 0.1 thou/uL (0.0-0.7); #Lymphocytes 1.4 thou/uL (1.20-3.40); #Monocytes 0.6 thou/uL (0.11-0.59); %Basophils 0.9 % (0.0-1.0); %Eosinophils 2.4 % (0.0-10.0); %Lymphocytes 26.9 % (21.0-51.0); %Monocytes 11.1 % (0.0-10.0); %Neutrophils 58.7 % (42.0-75.0); Hemoglobin 11.6 g/dL (12.0-16.0); Mean Corpuscular HGB CONC 32.2 g/dL (32.0-36.0); Mean Corpuscular Hemoglobin 29.9 pg (27.0-31.0); Mean Corpuscular Volume 92.8 fL (78.0-98.0); Mean Platelet Volume 7.6 fL (7.4-10.4); Platelet Count 129 thou/uL (130-400); RBC Distribution Width 16.1 % (11.5-14.5); Red Blood Cell (RBC) Count 3.87 mill/uL (4.20-5.40); White Blood Cell (WBC) Count 5.1 thou/uL (4.8-10.8)
[2021-05-24 21:37] LABS: ALT (SGPT) 24 U/L (8-55); AST (SGOT) 34 U/L (5-34); Alkaline Phosphatase 78 U/L (40-110); Anion Gap 14 mmol/L (10-20); BUN (Urea Nitrogen) 11 mg/dL (9.8-20.1); Bilirubin, Total 0.3 mg/dL (0.2-1.2); Calc. Creatinine Clearance 0 mL/min (70-130); Calcium 8.2 mg/dL (7.8-10.44); Carbon Dioxide 25 mmol/L (22-29); Chloride 103 mmol/L (98-107); Globulin 4.4 g/dL (2.4-3.5); Glucose 90 mg/dL (70-105); Lipase 32 U/L (8-78); Potassium 4.5 mmol/L (3.5-5.1); Protein, Total 7.4 g/dL (6.0-8.3); Sodium 137 mmol/L (136-145)
[2021-05-24] MEDS ORDERED: Acetaminophen 500 MG TAB ONE ×2 (22:04→22:08)
[2021-05-24] MEDS ORDERED: Promethazine HCl 25 MG/ML VIAL ONE (22:24)
[2021-05-24 22:48] LABS: Bilirubin Negative (Negative); Blood, Urine Negative (Negative); Clarity Clear (Clear); Glucose, Urine (Dipstick) Negative (Negative); Ketone, Urine Negative (Negative); Leukocyte Trace (Negative); Nitrite Negative (Negative); Protein, Urine (Dipstick) Negative (Neg-Trace); pH, Urine 5.5 (5.0-9.0)
[2021-05-24 22:55] LABS: Bacteria/HPF 1+ HPF (None Seen); RBC/HPF None Seen HPF (0-3); WBC/HPF 0-3 HPF (0-3)
== END 2021-05-24 22:29 | disposition home or self-care (01) ==
LOC: BURERS 20:48
DX: U07.1 COVID-19 (principal); J12.82 Pneumonia due to coronavirus disease 2019; K21.9 Gastro-esophageal reflux disease without esophagitis; Z87.891 Personal history of nicotine dependence
CPT/HCPCS: 36415; 71045; 80053; 81003; 81015; 83605; 83690; 84484; 85025; 96374; 96375; J1885; J2405; J2550

== ENCOUNTER 2021-11-29 20:36 | Emergency (ER) | payer OTHER ==
[2021-11-29 21:31] LABS: Bilirubin Small (Negative); Blood, Urine Large (Negative); Clarity Cloudy (Clear); Glucose, Urine (Dipstick) Negative (Negative); Ketone, Urine Trace mg/dL (Negative); Leukocyte Negative (Negative); Nitrite Negative (Negative); Protein, Urine (Dipstick) 100 mg/dL (Neg-Trace); Urobilinogen 0.2 mg/dL (Less than 2)
[2021-11-29 21:37] LABS: Specific Gravity, Urine 1.022 (1.002-1.036)
[2021-11-29 21:39] LABS: Bacteria/HPF 1+ HPF (None Seen); WBC/HPF 0-3 HPF (0-3)
[2021-11-29 21:51] LABS: #Basophils 0.1 thou/uL (0.0-0.2); #Eosinphils 0.1 thou/uL (0.0-0.7); #Lymphocytes 1.4 thou/uL (1.20-3.40); #Monocytes 0.5 thou/uL (0.11-0.59); %Basophils 0.7 % (0.0-1.0); %Eosinophils 1.3 % (0.0-10.0); %Lymphocytes 15.4 % (21.0-51.0); %Neutrophils 77.7 % (42.0-75.0); Hemoglobin 10.8 g/dL (12.0-16.0); Mean Corpuscular HGB CONC 33.4 g/dL (32.0-36.0); Mean Corpuscular Hemoglobin 32.4 pg (27.0-31.0); Mean Platelet Volume 6.7 fL (7.4-10.4); Platelet Count 211 thou/uL (130-400); RBC Distribution Width 14.4 % (11.5-14.5); Red Blood Cell (RBC) Count 3.34 mill/uL (4.20-5.40)
[2021-11-29] MEDS ORDERED: Promethazine HCl 25 MG/ML VIAL ONE (22:01)
[2021-11-29] MEDS ORDERED: Pantoprazole 40 MG VIAL ONE (22:01)
[2021-11-29 22:06] LABS: ALT (SGPT) 13 U/L (8-55); AST (SGOT) 17 U/L (5-34); Albumin 3.5 g/dL (3.5-5.0); Alkaline Phosphatase 97 U/L (40-110); Anion Gap 15 mmol/L (10-20); BUN (Urea Nitrogen) 14 mg/dL (9.8-20.1); Bilirubin, Total 0.4 mg/dL (0.2-1.2); Calc. Creatinine Clearance 0 mL/min (70-130); Calcium 9.2 mg/dL (7.8-10.44); Carbon Dioxide 28 mmol/L (22-29); Chloride 102 mmol/L (98-107); Globulin 5.2 g/dL (2.4-3.5); Glucose 135 mg/dL (70-105); Lipase 29 U/L (8-78); Potassium 3.9 mmol/L (3.5-5.1); Protein, Total 8.7 g/dL (6.0-8.3); Sodium 141 mmol/L (136-145)
[2021-11-29] MEDS ORDERED: diphenhydrAMINE 50 MG/ML VIAL ONE (23:20)
[2021-11-29] MEDS ORDERED: Metoclopramide HCl 10 MG TAB ONE (23:20)
[2021-11-29] MEDS ORDERED: HYDROmorphone 0.5 MG/0.5 ML SYRINGE ONE (23:21)
[2021-11-29] MEDS ORDERED: Heparin 10,000 UNITS/1 ML VIAL ONE (23:50)
== END 2021-11-30 00:06 | disposition home or self-care (01) ==
LOC: BURERS 20:36
DX: K52.9 Noninfective gastroenteritis and colitis, unspecified (principal); R11.2 Nausea with vomiting, unspecified; K21.9 Gastro-esophageal reflux disease without esophagitis; Z87.891 Personal history of nicotine dependence; Z85.43 Personal history of malignant neoplasm of ovary; Z85.528 Personal history of other malignant neoplasm of kidney; Z79.899 Other long term (current) drug therapy
CPT/HCPCS: 71045; 74176; 80053; 81003; 81015; 83605; 83690; 84484; 85025; 93005; 96374; 96375; C9113; J1170; J1200; J1642; J1644; J2550

== ENCOUNTER 2023-02-02 09:05 | Emergency (ER) | payer OTHER ==
[2023-02-02] MEDS ORDERED: Metoclopramide HCl 10 MG/2 ML VIAL ONE (09:45)
[2023-02-02] MEDS ORDERED: Fentanyl 100 MCG/2 ML VIAL ONE ×2 (09:45→14:17)
[2023-02-02 10:10] LABS: Hemoglobin 11.6 g/dL (12.0-16.0); Mean Corpuscular HGB CONC 34.4 g/dL (32.0-36.0); Mean Corpuscular Volume 95.9 fl (78.0-98.0); Mean Platelet Volume 7.3 fL (7.4-10.4); Platelet Count 167 10x3/uL (130-400); White Blood Cell (WBC) Count 2.8 10x3/uL (4.8-10.8)
[2023-02-02 10:22] LABS: ALT (SGPT) 27 U/L (8-55); Albumin 3.5 g/dL (3.5-5.0); Alkaline Phosphatase 85 U/L (40-110); Anion Gap 16 mmol/L (10-20); BUN (Urea Nitrogen) 16 mg/dL (9.8-20.1); Bilirubin, Total 0.6 mg/dL (0.2-1.2); Calc. Creatinine Clearance 0 mL/min (70-130); Calcium 8.6 mg/dL (7.8-10.44); Carbon Dioxide 18 mmol/L (22-29); Chloride 108 mmol/L (98-107); Estimated GFR 68; Globulin 4.7 g/dL (2.4-3.5); Glucose 164 mg/dL (70-105); Lipase 18 U/L (8-78); Protein, Total 8.2 g/dL (6.0-8.3); Sodium 138 mmol/L (136-145)
[2023-02-02] MEDS ORDERED: Iopamidol 370 76% 100 ML VIAL ONE (10:23)
[2023-02-02 10:25] LABS: AST (SGOT) 33 U/L (5-34); Potassium 4.1 mmol/L (3.5-5.1)
[2023-02-02 10:37] LABS: Band 8 % (5-11); Lymphocytes 13 % (21-51); MDiff Complete? YES; Monocytes 3 % (0-10); Neutrophil 76 % (42-75); Platelet Morphology Comment Appears Adequate; RBC Morphology Normal
[2023-02-02 15:03] LABS: Bilirubin Negative (Negative); Blood, Urine Small (Negative); Clarity Clear (Clear); Glucose, Urine (Dipstick) Negative (Negative); Ketone, Urine Negative (Negative); Leukocyte Negative (Negative); Nitrite Negative (Negative); Protein, Urine (Dipstick) Negative (Neg-Trace); Urobilinogen 0.2 mg/dL (Less than 2); pH, Urine 5.5 (5.0-9.0)
[2023-02-02 15:05] LABS: Specific Gravity, Urine 1.036 (1.002-1.036)
[2023-02-02 15:16] LABS: Bacteria/HPF 1+ HPF (None Seen); RBC/HPF 0-3 HPF (0-3); Squamous Epithelial 0-3 HPF (0-3); WBC/HPF 0-3 HPF (0-3)
== END 2023-02-02 14:45 | disposition short-term general hospital (02) ==
LOC: BURERS 09:05
DX: K56.609 Unspecified intestinal obstruction, unspecified as to partial versus complete obstruction (principal); D72.819 Decreased white blood cell count, unspecified; K21.9 Gastro-esophageal reflux disease without esophagitis; Z87.891 Personal history of nicotine dependence; Z79.899 Other long term (current) drug therapy
CPT/HCPCS: 36415; 74177; 80053; 81003; 81015; 83605; 83690; 85025; 96374; 96375; 96376; J2765; J3010; Q9967